=== PATIENT | male | born 1980 | race African-American/Black ===

== ENCOUNTER 2017-08-22 08:19 | Emergency (ER) | payer BC, SELFPAY ==
[2017-08-22] MEDS ORDERED: Lidocaine 1% w/Epinephrine 1:100K 20 ML VIAL ONE (09:40)
== END 2017-08-22 10:19 | disposition home or self-care (01) ==
LOC: ERS 08:19
DX: L02.31 Cutaneous abscess of buttock (principal); F17.210 Nicotine dependence, cigarettes, uncomplicated
CPT/HCPCS: 46050; 87070; 87205; J2001